=== PATIENT | female | born 1990 | race Caucasian/White ===

== ENCOUNTER 2020-10-28 20:40 | Observation (INO) ==
[2020-10-28] MEDS ORDERED: Acetaminophen 325 MG TABLET PO PRN (22:15)
[2020-10-28] MEDS ORDERED: Naloxone 0.4 MG/ML INJ IVP PRN (22:15)
[2020-10-28] MEDS ORDERED: Ondansetron ODT 4 MG TAB.RAPDIS SL PRN (22:15)
[2020-10-28] MEDS ORDERED: 0.9 % Sodium Chloride 1,000 ML IVC SCH (22:15)
[2020-10-29] MEDS ORDERED: Lidocaine Viscous Oral Soln 15 ML SOLUTION MM PRN (00:35)
[2020-10-29] MEDS ORDERED: *HR* OxyCODONE Immed Rel 5 MG TABLET PO PRN (00:38)
[2020-10-29] MEDS ORDERED: Acyclovir 400 MG in D5% in Water 100 ML IVPB SCH ×2 (01:00→06:00)
[2020-10-29] MEDS: Gabapentin 100 MG CAPSULE PO SCH ×2 (01:07→08:46)
[2020-10-29 05:29] LABS: Hematocrit 35.9 % (35.3-44.9); Hemoglobin 12.2 g/dL (11.5-15.4); Immature Granulocytes % 0.4 % (0-4); Lymphocytes # 0.6 K/mcL (0.6-4.6); Lymphocytes % 13.5 %; Mean Corpuscular Hemoglobin 30.9 pg (28.0-33.3); Mean Corpuscular Volume 90.9 fL (83.0-100.0); Mean Platelet Volume 10.5 fL (9.4-12.4); Monocytes # 0.1 K/mcL (0.0-1.3); Neutrophils # 3.9 K/mcL (1.6-8.9); Platelet Count 209 K/mcL (140-400); Red Blood Count 3.95 M/mcL (3.82-4.97); Red Cell Distribution Width 12.2 % (11.5-14.5); Segmented Neutrophils % 83.1 %; White Blood Count 4.7 K/mcL (4.3-11.1)
[2020-10-29 05:56] LABS: BUN/Creatinine Ratio 20 (6-26); Blood Urea Nitrogen 11 mg/dL (6-20); Calcium 9.1 mg/dL (8.6-10.3); Carbon Dioxide 26 mEq/L (23-29); Chloride 109 mEq/L (98-107); Glucose 145 mg/dL (70-105); Magnesium 1.9 mg/dL (1.6-2.6); Osmolality,Calculated 290 (280-300); Potassium 3.9 mEq/L (3.5-5.1); Sodium 139 mEq/L (136-145); eGFR For African Americans > 60 (> 60); eGFR For Non-African Americans > 60 (> 60)
[2020-10-29] MEDS ORDERED: predniSONE 20 MG TABLET PO SCH (09:00)
[2020-10-29 12:37] LABS: Estimated Average Glucose 117 mg/dl
[2020-10-29 15:15] VITALS: BP 124/61
== END 2020-10-29 17:15 | disposition home or self-care (01) ==
LOC: 3BNU
PROVIDERS: ADMIT Student in an Organized Health Care Education/Training Program; ATTEND Student in an Organized Health Care Education/Training Program